=== PATIENT | female | born 1955 | race Caucasian/White ===

== ENCOUNTER 2025-05-01 07:39 | Inpatient (IN) ==
[2025-05-01] MEDS: LACTATED RINGERS 1,000 ML IV ONE ×2 (08:17)
[2025-05-01 08:33] LABS: Hematocrit 34.4 % (34.1-44.9); Hemoglobin 11.0 g/dL (11.2-15.7); Mean Corpuscular HGB Conc 32.0 g/dL (31.0-36.0); Platelet Count 311 K/mcL (140-440)
[2025-05-01 08:47] LABS: ALT/SGPT 7 U/L (<40); AST/SGOT 17 U/L (<32); Albumin 2.4 gm/dL (3.2-5.2); Albumin/Globulin Ratio 1.2 (1.0-2.3); Alkaline Phosphatase 64 U/L (39-117); Anion Gap 22.0 (8.0-16.0); Bilirubin,Total 0.7 mg/dL (0.1-1.0); Blood Urea Nitrogen 20 mg/dL (8-23); Calcium 7.9 mg/dL (8.6-10.4); Carbon Dioxide 17 mmol/L (22-30); Chloride 94 mmol/L (96-108); Globulin 2.0 gm/dL (2.2-3.7); Glucose 158 mg/dL (70-105); Potassium 3.6 mmol/L (3.3-5.1); Sodium 133 mmol/L (133-145)
[2025-05-01] MEDS: NOREPINEPHRINE BITARTRATE 16 MG in 0.9 % SODIUM CHLORIDE 234 ML IV SCH (09:51)
[2025-05-01] MEDS: NOREPINEPHRINE 250 ML IV SCH (10:11)
[2025-05-01] MEDS: CEFEPIME 1 GM VIAL IV ONE (10:14)
[2025-05-01] MEDS: CALCIUM GLUCONATE 4.65 MEQ in DEXTROSE 5% IN WATER 50 ML IV ONE (10:14)
[2025-05-01] MEDS: 0.9 % SODIUM CHLORIDE 250 ML ONE (10:26)
[2025-05-01] MEDS: 0.9 % SODIUM CHLORIDE 250 ML IV SCH ×2 (10:34→11:41)
[2025-05-01] MEDS: PIPERACILLIN SODIUM/TAZOBACTAM 4.5 GM in DEXTROSE 5% IN WATER 50 ML IV ONE (11:03)
[2025-05-01] MEDS: CEFEPIME 2 GM VIAL IV ONE (11:04)
[2025-05-01] MEDS: PANTOPRAZOLE 40 MG VIAL IV ONE (11:13)
[2025-05-01] MEDS: CEFEPIME 2 GM VIAL IV SCH (11:13)
[2025-05-01] MEDS: metroNIDAZOLE 500 MG/100 ML BAG IV SCH ×2 (11:14→17:39)
[2025-05-01] MEDS: 0.9 % SODIUM CHLORIDE 1,000 ML IV SCH ×2 (11:15→17:18)
[2025-05-01] MEDS ORDERED: fentaNYL 100 MCG/2 ML VIAL ONE (13:00)
[2025-05-01] MEDS ORDERED: PROPOFOL 200 MG/20 ML VIAL IV ONE (13:00)
[2025-05-01] MEDS ORDERED: LIDOCAINE 2% PF 5 ML VIAL ONE (13:01)
[2025-05-01] MEDS ORDERED: GLYCOPYRROLATE 0.2 MG/ML VIAL IV ONE (13:01)
[2025-05-01] MEDS ORDERED: ROCURONIUM 10 MG/ML ML IV ONE ×2 (13:01→15:41)
[2025-05-01] MEDS ORDERED: ONDANSETRON 4 MG/2 ML VIAL ONE (13:01)
[2025-05-01] MEDS ORDERED: DEXAMETHASONE 10 MG/ML VIAL ONE (13:01)
[2025-05-01] MEDS ORDERED: SUCCINYLCHOLINE 200 MG/10 ML VIAL IV ONE (13:01)
[2025-05-01] MEDS ORDERED: MAGNESIUM SULFATE 2 GM/50 ML BAG IV ONE (13:03)
[2025-05-01] MEDS ORDERED: FAMOTIDINE/PF 20 MG/2 ML VIAL IV ONE (13:04)
[2025-05-01 13:21] LABS: INR 1.3 (0.9-1.1); Prothrombin Time 16.8 sec (11.9-14.5)
[2025-05-01] MEDS ORDERED: PHENYLephrine 1 MG/10 ML SYRINGE (ANEST) ONE ×2 (13:23→13:58)
[2025-05-01] MEDS ORDERED: HYDROmorphone 0.5 MG/0.5 ML SYRINGE ONE (14:06)
[2025-05-01] MEDS ORDERED: 0.9 % SODIUM CHLORIDE 100 ML IV ONE (14:31)
[2025-05-01] MEDS ORDERED: VASOPRESSIN 20 UNIT/ML VIAL ONE (14:32)
[2025-05-01] MEDS ORDERED: SUGAMMADEX SODIUM 200 MG/2 ML VIAL IV ONE (15:41)
[2025-05-01] MEDS ORDERED: ONDANSETRON 4 MG/2 ML VIAL IV PRN (16:29)
[2025-05-01] MEDS ORDERED: METHOCARBAMOL 1,000 MG/10 ML VIAL IV PRN (16:29)
[2025-05-01] MEDS ORDERED: BENZOCAINE/MENTHOL 1 LOZENGE PO PRN (16:29)
[2025-05-01] MEDS ORDERED: fentaNYL 100 MCG/2 ML VIAL IV PRN (16:29)
[2025-05-01] MEDS ORDERED: HYDROmorphone 0.5 MG/0.5 ML SYRINGE IV PRN (16:29)
[2025-05-01] MEDS ORDERED: IPRATROPIUM/ALBUTEROL 3 ML AMPUL.NEB NEB PRN (16:29)
[2025-05-01] MEDS ORDERED: LACTATED RINGERS 250 ML IV PRN (16:29)
[2025-05-01] MEDS ORDERED: NALOXONE HCL 0.4 MG/ML VIAL IV PRN (16:29)
[2025-05-01 16:34] LABS: RBC 3.03 M/mcL (3.59-5.38); WBC 5.2 K/mcL (4.5-11.0)
[2025-05-01] MEDS: ACETAMINOPHEN 1,000 MG/100 ML BAG IV ONE (16:36)
[2025-05-01] MEDS: ALBUMIN HUMAN 25 GM/100 ML BAG IV SCH (17:19)
[2025-05-01] MEDS: METOCLOPRAMIDE 10 MG/2 ML VIAL IV SCH (18:07)
[2025-05-01] MEDS: PANTOPRAZOLE 80 MG in 0.9 % SODIUM CHLORIDE 100 ML IV SCH (18:23)
[2025-05-01] MEDS: LACTATED RINGERS 1,000 ML IV SCH (19:30)
[2025-05-01] MEDS: CEFEPIME 1 GM VIAL IV SCH (21:03)
[2025-05-02] MEDS: ACETAMINOPHEN 1,000 MG/100 ML BAG IV SCH (00:41)
[2025-05-02 06:30] LABS: Basophils # (Auto) 0 K/mcL (0.00-0.30); Basophils % (Auto) 0 % (0.0-2.0); Eosinophils # (Auto) 0 K/mcL (0.00-0.70); Eosinophils % (Auto) 0 % (0.0-7.0); Hematocrit 25.4 % (34.1-44.9); Hemoglobin 7.9 g/dL (11.2-15.7); Lymphocytes # (Auto) 0.37 K/mcL (1.50-4.80); Lymphocytes % (Auto) 5.8 % (15.5-49.0); Mean Corpuscular HGB Conc 31.1 g/dL (31.0-36.0); Monocytes # (Auto) 0.29 K/mcL (0.10-0.90); Monocytes % (Auto) 4.5 % (1.0-12.0); Platelet Count 201 K/mcL (140-440); RBC 2.19 M/mcL (3.59-5.38); WBC 6.4 K/mcL (4.5-11.0)
[2025-05-02 06:34] LABS: ALT/SGPT 8 U/L (<40); AST/SGOT 11 U/L (<32); Albumin 2.7 gm/dL (3.2-5.2); Albumin/Globulin Ratio 1.5 (1.0-2.3); Alkaline Phosphatase 43 U/L (39-117); Anion Gap 13.0 (8.0-16.0); Bilirubin,Direct 0.6 mg/dL (<0.3); Bilirubin,Total 0.8 mg/dL (0.1-1.0); Blood Urea Nitrogen 22 mg/dL (8-23); Calcium 8.1 mg/dL (8.6-10.4); Carbon Dioxide 19 mmol/L (22-30); Chloride 102 mmol/L (96-108); Globulin 1.8 gm/dL (2.2-3.7); Glucose 119 mg/dL (70-105); Phosphorous 4.0 mg/dL (2.5-4.5); Potassium 3.7 mmol/L (3.3-5.1); Sodium 134 mmol/L (133-145); Triglycerides 57 mg/dL (<150); Uric Acid 8.5 mg/dL (2.5-8.0)
[2025-05-02 14:54] LABS: Neutrophils % (Auto) 88.8 % (38.0-78.0)
[2025-05-02] MEDS ORDERED: SODIUM CHLORIDE IRRIG SOLUTION 250 ML BOTTLE IRR ONE (14:57)
[2025-05-02] MEDS ORDERED: LIDOCAINE 1% 10 ML VIAL SQ ONE (14:57)
[2025-05-02] MEDS ORDERED: HEPARIN 10 UNITS/ML 5ML FLUSH IV ONE (14:57)
[2025-05-02] MEDS: HEPARIN 10 UNITS/ML 5ML FLUSH IV SCH ×2 (20:58)
[2025-05-02] MEDS: 0.9 % SODIUM CHLORIDE 10 ML SYRINGE IV SCH (20:59)
[2025-05-02 21:04] LABS: Hematocrit 22.1 % (34.1-44.9); Hemoglobin 6.8 g/dL (11.2-15.7)
[2025-05-03] MEDS: 0.9 % SODIUM CHLORIDE 250 ML IV SCH ×2 (00:23→02:30)
[2025-05-03] MEDS: SIMVASTATIN 20 MG TABLET PO SCH (05:31)
[2025-05-03 06:14] LABS: Basophils # (Auto) 0 K/mcL (0.00-0.30); Basophils % (Auto) 0 % (0.0-2.0); Eosinophils # (Auto) 0 K/mcL (0.00-0.70); Eosinophils % (Auto) 0 % (0.0-7.0); Hematocrit 31.1 % (34.1-44.9); Hemoglobin 9.9 g/dL (11.2-15.7); Lymphocytes # (Auto) 0.96 K/mcL (1.50-4.80); Lymphocytes % (Auto) 12.8 % (15.5-49.0); Mean Corpuscular HGB Conc 31.8 g/dL (31.0-36.0); Monocytes # (Auto) 0.50 K/mcL (0.10-0.90); Monocytes % (Auto) 6.6 % (1.0-12.0); Platelet Count 156 K/mcL (140-440); RBC 2.87 M/mcL (3.59-5.38); WBC 7.5 K/mcL (4.5-11.0)
[2025-05-03 06:25] LABS: ALT/SGPT 7 U/L (<40); AST/SGOT 10 U/L (<32); Albumin 3.0 gm/dL (3.2-5.2); Albumin/Globulin Ratio 1.5 (1.0-2.3); Alkaline Phosphatase 44 U/L (39-117); Anion Gap 14.0 (8.0-16.0); Bilirubin,Total 0.6 mg/dL (0.1-1.0); Blood Urea Nitrogen 23 mg/dL (8-23); Calcium 8.4 mg/dL (8.6-10.4); Carbon Dioxide 16 mmol/L (22-30); Chloride 108 mmol/L (96-108); Globulin 2.0 gm/dL (2.2-3.7); Glucose 87 mg/dL (70-105); Phosphorous 3.9 mg/dL (2.5-4.5); Potassium 3.7 mmol/L (3.3-5.1); Sodium 138 mmol/L (133-145)
[2025-05-03] MEDS: DENOSUMAB 60 MG/ML SYRINGE SQ ONE (11:02)
[2025-05-03] MEDS: POTASSIUM CHLORIDE 10 MEQ TABLET PO SCH (11:02)
[2025-05-03] MEDS: 0.9 % SODIUM CHLORIDE 1,000 ML IV SCH ×2 (11:03→17:11)
[2025-05-03] MEDS: fentaNYL 100 MCG/2 ML VIAL IV PRN (11:06)
[2025-05-03] MEDS: metroNIDAZOLE 500 MG/100 ML BAG IV SCH (12:15)
[2025-05-03] MEDS ORDERED: DEXTROSE 31 GM ORAL.SUSP PO PRN (13:56)
[2025-05-03] MEDS ORDERED: DEXTROSE 50% 50 ML VIAL IV PRN (13:56)
[2025-05-03 14:05] LABS: Neutrophils % (Auto) 80.3 % (38.0-78.0)
[2025-05-03] MEDS ORDERED: TPN PER PHARMACY IV SCH (15:00)
[2025-05-03] MEDS: SODIUM CHLORIDE IV SCH (15:18)
[2025-05-03] MEDS: [UNRECOGNIZED DRUG - OTHER] IV SCH (15:18)
[2025-05-03] MEDS: MAGNESIUM SULFATE IV SCH (15:18)
[2025-05-03] MEDS: POTASSIUM ACETATE IV SCH (15:18)
[2025-05-03] MEDS: BENZOCAINE ONE 20% 1 SPRAY TOPICAL PRN (17:09)
[2025-05-03] MEDS: BENZOCAINE ONE 20% 1 SPRAY TOPICAL SCH (17:10)
[2025-05-03 17:20] LABS: Hematocrit 32.8 % (34.1-44.9); Hemoglobin 10.3 g/dL (11.2-15.7)
[2025-05-03] MEDS: INSULIN LISPRO 1 UNIT/0.01 ML UNIT SQ SCH (18:07)
[2025-05-03] MEDS: PANTOPRAZOLE 40 MG VIAL IV ONE (20:14)
[2025-05-04 06:36] LABS: Basophils # (Auto) 0 K/mcL (0.00-0.30); Basophils % (Auto) 0 % (0.0-2.0); Eosinophils # (Auto) 0 K/mcL (0.00-0.70); Eosinophils % (Auto) 0 % (0.0-7.0); Hematocrit 32.8 % (34.1-44.9); Hemoglobin 10.3 g/dL (11.2-15.7); Lymphocytes # (Auto) 1.17 K/mcL (1.50-4.80); Lymphocytes % (Auto) 14.7 % (15.5-49.0); Mean Corpuscular HGB Conc 31.4 g/dL (31.0-36.0); Monocytes # (Auto) 0.57 K/mcL (0.10-0.90); Monocytes % (Auto) 7.2 % (1.0-12.0); Neutrophils % (Auto) 77.7 % (38.0-78.0); Platelet Count 151 K/mcL (140-440); RBC 3.01 M/mcL (3.59-5.38); WBC 8.0 K/mcL (4.5-11.0)
[2025-05-04 06:45] LABS: ALT/SGPT 7 U/L (<40); AST/SGOT 9 U/L (<32); Albumin 2.8 gm/dL (3.2-5.2); Albumin/Globulin Ratio 1.4 (1.0-2.3); Alkaline Phosphatase 49 U/L (39-117); Anion Gap 10.0 (8.0-16.0); Bilirubin,Direct 0.3 mg/dL (<0.3); Bilirubin,Total 0.5 mg/dL (0.1-1.0); Blood Urea Nitrogen 21 mg/dL (8-23); Calcium 8.8 mg/dL (8.6-10.4); Carbon Dioxide 18 mmol/L (22-30); Chloride 113 mmol/L (96-108); Globulin 2.0 gm/dL (2.2-3.7); Glucose 130 mg/dL (70-105); Phosphorous 2.2 mg/dL (2.5-4.5); Potassium 3.2 mmol/L (3.3-5.1); Sodium 141 mmol/L (133-145); Triglycerides 79 mg/dL (<150); Uric Acid 6.6 mg/dL (2.5-8.0)
[2025-05-04] MEDS: POTASSIUM ACETATE IV SCH (14:40)
[2025-05-04] MEDS: [UNRECOGNIZED DRUG - OTHER] IV SCH (14:40)
[2025-05-04] MEDS: SODIUM CHLORIDE IV SCH (14:40)
[2025-05-04] MEDS: MAGNESIUM SULFATE IV SCH (14:40)
[2025-05-04] MEDS: FAT EMULSION 20% 250 ML IV SCH (17:29)
[2025-05-05 06:35] LABS: Basophils # (Auto) 0.01 K/mcL (0.00-0.30); Basophils % (Auto) 0.1 % (0.0-2.0); Eosinophils # (Auto) 0.03 K/mcL (0.00-0.70); Eosinophils % (Auto) 0.4 % (0.0-7.0); Hematocrit 34.3 % (34.1-44.9); Hemoglobin 10.8 g/dL (11.2-15.7); Lymphocytes # (Auto) 1.42 K/mcL (1.50-4.80); Lymphocytes % (Auto) 17.8 % (15.5-49.0); Mean Corpuscular HGB Conc 31.5 g/dL (31.0-36.0); Monocytes # (Auto) 0.80 K/mcL (0.10-0.90); Monocytes % (Auto) 10.0 % (1.0-12.0); Neutrophils % (Auto) 71.1 % (38.0-78.0); Platelet Count 146 K/mcL (140-440); RBC 3.17 M/mcL (3.59-5.38); WBC 8.0 K/mcL (4.5-11.0)
[2025-05-05 06:55] LABS: ALT/SGPT 6 U/L (<40); AST/SGOT 8 U/L (<32); Albumin 2.7 gm/dL (3.2-5.2); Albumin/Globulin Ratio 1.3 (1.0-2.3); Alkaline Phosphatase 71 U/L (39-117); Anion Gap 9.0 (8.0-16.0); Bilirubin,Direct 0.2 mg/dL (<0.3); Bilirubin,Total 0.4 mg/dL (0.1-1.0); Blood Urea Nitrogen 16 mg/dL (8-23); Calcium 8.6 mg/dL (8.6-10.4); Carbon Dioxide 19 mmol/L (22-30); Chloride 114 mmol/L (96-108); Globulin 2.1 gm/dL (2.2-3.7); Glucose 141 mg/dL (70-105); Phosphorous 1.9 mg/dL (2.5-4.5); Potassium 3.0 mmol/L (3.3-5.1); Sodium 142 mmol/L (133-145); Triglycerides 78 mg/dL (<150); Uric Acid 5.1 mg/dL (2.5-8.0)
[2025-05-05] MEDS: 0.9 % SODIUM CHLORIDE 10 ML SYRINGE IV PRN (08:16)
[2025-05-05] MEDS: POTASSIUM PHOSPHATE 40 MEQ in DEXTROSE 5% IN WATER 500 ML IV ONE (08:16)
[2025-05-05] MEDS: ALBUMIN HUMAN 12.5 GM/50 ML VIAL IV ONE (09:33)
[2025-05-05] MEDS: FUROSEMIDE 100 MG/10 ML VIAL IV ONE (10:07)
[2025-05-05 10:51] LABS: Folate 16.1 ng/mL (4.2-19.9)
[2025-05-05] MEDS: MVI IV SCH (14:54)
[2025-05-05] MEDS: [UNRECOGNIZED DRUG - OTHER] IV SCH (14:54)
[2025-05-05] MEDS: POTASSIUM ACETATE IV SCH (14:54)
[2025-05-05] MEDS: POTASSIUM PHOSPHATE IV SCH (14:54)
[2025-05-05] MEDS: MAGNESIUM SULFATE IV SCH (14:54)
[2025-05-06 07:17] LABS: ALT/SGPT < 5 U/L (<40); AST/SGOT 8 U/L (<32); Albumin 2.6 gm/dL (3.2-5.2); Albumin/Globulin Ratio 1.1 (1.0-2.3); Alkaline Phosphatase 57 U/L (39-117); Anion Gap 8.0 (8.0-16.0); Bilirubin,Direct 0.3 mg/dL (<0.3); Bilirubin,Total 0.4 mg/dL (0.1-1.0); Blood Urea Nitrogen 16 mg/dL (8-23); Calcium 8.1 mg/dL (8.6-10.4); Carbon Dioxide 21 mmol/L (22-30); Chloride 111 mmol/L (96-108); Globulin 2.3 gm/dL (2.2-3.7); Glucose 130 mg/dL (70-105); Phosphorous 2.4 mg/dL (2.5-4.5); Potassium 3.3 mmol/L (3.3-5.1); Sodium 140 mmol/L (133-145); Triglycerides 103 mg/dL (<150); Uric Acid 3.9 mg/dL (2.5-8.0)
[2025-05-06] MEDS ORDERED: hydrALAZINE 20 MG/ML VIAL IV PRN (09:38)
[2025-05-06] MEDS: POTASSIUM ACETATE IV SCH (15:08)
[2025-05-06] MEDS: POTASSIUM PHOSPHATE IV SCH (15:08)
[2025-05-06] MEDS: [UNRECOGNIZED DRUG - OTHER] IV SCH (15:08)
[2025-05-06] MEDS: MAGNESIUM SULFATE IV SCH (15:08)
[2025-05-06] MEDS: PANTOPRAZOLE 40 MG VIAL IV SCH (17:05)
[2025-05-07 06:48] LABS: ALT/SGPT < 5 U/L (<40); AST/SGOT 10 U/L (<32); Albumin 2.6 gm/dL (3.2-5.2); Albumin/Globulin Ratio 1.1 (1.0-2.3); Alkaline Phosphatase 68 U/L (39-117); Anion Gap 10.0 (8.0-16.0); Bilirubin,Direct 0.2 mg/dL (<0.3); Bilirubin,Total 0.4 mg/dL (0.1-1.0); Blood Urea Nitrogen 15 mg/dL (8-23); Calcium 8.2 mg/dL (8.6-10.4); Carbon Dioxide 20 mmol/L (22-30); Chloride 111 mmol/L (96-108); Globulin 2.4 gm/dL (2.2-3.7); Glucose 164 mg/dL (70-105); Phosphorous 2.5 mg/dL (2.5-4.5); Potassium 3.8 mmol/L (3.3-5.1); Sodium 141 mmol/L (133-145); Triglycerides 117 mg/dL (<150); Uric Acid 3.1 mg/dL (2.5-8.0)
[2025-05-07] MEDS: FUROSEMIDE 20 MG TABLET PO SCH (09:45)
[2025-05-08 06:07] LABS: Basophils # (Auto) 0.02 K/mcL (0.00-0.30); Basophils % (Auto) 0.2 % (0.0-2.0); Eosinophils # (Auto) 0.28 K/mcL (0.00-0.70); Eosinophils % (Auto) 3.2 % (0.0-7.0); Hematocrit 34.6 % (34.1-44.9); Hemoglobin 10.1 g/dL (11.2-15.7); Lymphocytes # (Auto) 1.49 K/mcL (1.50-4.80); Lymphocytes % (Auto) 16.9 % (15.5-49.0); Mean Corpuscular HGB Conc 29.2 g/dL (31.0-36.0); Monocytes # (Auto) 1.10 K/mcL (0.10-0.90); Monocytes % (Auto) 12.5 % (1.0-12.0); Neutrophils % (Auto) 66.7 % (38.0-78.0); Platelet Count 150 K/mcL (140-440); RBC 2.96 M/mcL (3.59-5.38); WBC 8.8 K/mcL (4.5-11.0)
[2025-05-08 08:04] LABS: ALT/SGPT < 5 U/L (<40); AST/SGOT 13 U/L (<32); Albumin 2.8 gm/dL (3.2-5.2); Albumin/Globulin Ratio 1.2 (1.0-2.3); Alkaline Phosphatase 79 U/L (39-117); Anion Gap 8.0 (8.0-16.0); Bilirubin,Direct < 0.2 mg/dL (0-0.3); Bilirubin,Total 0.3 mg/dL (0.1-1.0); Blood Urea Nitrogen 15 mg/dL (8-23); Calcium 8.3 mg/dL (8.6-10.4); Carbon Dioxide 22 mmol/L (22-30); Chloride 108 mmol/L (96-108); Globulin 2.4 gm/dL (2.2-3.7); Glucose 151 mg/dL (70-105); Phosphorous 3.2 mg/dL (2.5-4.5); Potassium 4.2 mmol/L (3.3-5.1); Sodium 138 mmol/L (133-145); Triglycerides 120 mg/dL (<150); Uric Acid 2.5 mg/dL (2.5-8.0)
[2025-05-08] MEDS: [UNRECOGNIZED DRUG - OTHER] IV SCH (15:46)
[2025-05-08] MEDS: MAGNESIUM SULFATE IV SCH (15:46)
[2025-05-08] MEDS: POTASSIUM PHOSPHATE IV SCH (15:46)
[2025-05-08] MEDS: POTASSIUM ACETATE IV SCH (15:46)
[2025-05-09 06:22] LABS: ALT/SGPT 6 U/L (<40); AST/SGOT 16 U/L (<32); Albumin 2.6 gm/dL (3.2-5.2); Albumin/Globulin Ratio 0.9 (1.0-2.3); Alkaline Phosphatase 85 U/L (39-117); Anion Gap 9.0 (8.0-16.0); Bilirubin,Direct < 0.2 mg/dL (0-0.3); Bilirubin,Total 0.3 mg/dL (0.1-1.0); Blood Urea Nitrogen 18 mg/dL (8-23); Calcium 8.5 mg/dL (8.6-10.4); Carbon Dioxide 21 mmol/L (22-30); Chloride 106 mmol/L (96-108); Globulin 2.8 gm/dL (2.2-3.7); Glucose 154 mg/dL (70-105); Phosphorous 3.5 mg/dL (2.5-4.5); Potassium 4.4 mmol/L (3.3-5.1); Sodium 136 mmol/L (133-145); Triglycerides 123 mg/dL (<150); Uric Acid 2.5 mg/dL (2.5-8.0)
[2025-05-09 07:11] LABS: Basophils # (Auto) 0.03 K/mcL (0.00-0.30); Basophils % (Auto) 0.3 % (0.0-2.0); Eosinophils # (Auto) 0.16 K/mcL (0.00-0.70); Eosinophils % (Auto) 1.4 % (0.0-7.0); Hematocrit 35.9 % (34.1-44.9); Hemoglobin 11.3 g/dL (11.2-15.7); Lymphocytes # (Auto) 1.77 K/mcL (1.50-4.80); Lymphocytes % (Auto) 15.6 % (15.5-49.0); Mean Corpuscular HGB Conc 31.5 g/dL (31.0-36.0); Monocytes # (Auto) 1.06 K/mcL (0.10-0.90); Monocytes % (Auto) 9.3 % (1.0-12.0); Neutrophils % (Auto) 72.5 % (38.0-78.0); Platelet Count 191 K/mcL (140-440); RBC 3.39 M/mcL (3.59-5.38); WBC 11.3 K/mcL (4.5-11.0)
[2025-05-09] MEDS: [UNRECOGNIZED DRUG - OTHER] IV SCH (15:47)
[2025-05-09] MEDS: MAGNESIUM SULFATE IV SCH (15:47)
[2025-05-09] MEDS: POTASSIUM ACETATE IV SCH (15:47)
[2025-05-09] MEDS: POTASSIUM PHOSPHATE IV SCH (15:47)
[2025-05-10 07:01] LABS: ALT/SGPT 7 U/L (<40); AST/SGOT 19 U/L (<32); Albumin 2.5 gm/dL (3.2-5.2); Albumin/Globulin Ratio 0.9 (1.0-2.3); Alkaline Phosphatase 96 U/L (39-117); Anion Gap 11.0 (8.0-16.0); Bilirubin,Direct < 0.2 mg/dL (0-0.3); Bilirubin,Total 0.3 mg/dL (0.1-1.0); Blood Urea Nitrogen 15 mg/dL (8-23); Calcium 8.3 mg/dL (8.6-10.4); Carbon Dioxide 20 mmol/L (22-30); Chloride 104 mmol/L (96-108); Globulin 2.8 gm/dL (2.2-3.7); Glucose 160 mg/dL (70-105); Phosphorous 3.4 mg/dL (2.5-4.5); Potassium 3.9 mmol/L (3.3-5.1); Sodium 135 mmol/L (133-145); Triglycerides 142 mg/dL (<150); Uric Acid 2.5 mg/dL (2.5-8.0)
[2025-05-10 08:36] LABS: Basophils # (Auto) 0.04 K/mcL (0.00-0.30); Basophils % (Auto) 0.4 % (0.0-2.0); Eosinophils # (Auto) 0.10 K/mcL (0.00-0.70); Eosinophils % (Auto) 0.9 % (0.0-7.0); Hematocrit 33.0 % (34.1-44.9); Hemoglobin 10.7 g/dL (11.2-15.7); Lymphocytes # (Auto) 1.60 K/mcL (1.50-4.80); Lymphocytes % (Auto) 14.2 % (15.5-49.0); Mean Corpuscular HGB Conc 32.4 g/dL (31.0-36.0); Monocytes # (Auto) 0.89 K/mcL (0.10-0.90); Monocytes % (Auto) 7.9 % (1.0-12.0); Neutrophils % (Auto) 76.1 % (38.0-78.0); Platelet Count 200 K/mcL (140-440); RBC 3.15 M/mcL (3.59-5.38); WBC 11.3 K/mcL (4.5-11.0)
[2025-05-10] MEDS ORDERED: VANCOMYCIN PER PHARMACY IV SCH (11:24)
[2025-05-10] MEDS: VANCOMYCIN 1,750 MG in 0.9 % SODIUM CHLORIDE 500 ML IV SCH (12:40)
[2025-05-10] MEDS: POTASSIUM PHOSPHATE IV SCH (15:00)
[2025-05-10] MEDS: POTASSIUM ACETATE IV SCH (15:00)
[2025-05-10] MEDS: MAGNESIUM SULFATE IV SCH (15:00)
[2025-05-10] MEDS: [UNRECOGNIZED DRUG - OTHER] IV SCH (15:00)
[2025-05-11 07:22] LABS: ALT/SGPT 9 U/L (<40); AST/SGOT 24 U/L (<32); Albumin 2.5 gm/dL (3.2-5.2); Albumin/Globulin Ratio 0.9 (1.0-2.3); Alkaline Phosphatase 88 U/L (39-117); Anion Gap 11.0 (8.0-16.0); Bilirubin,Direct 0.2 mg/dL (<0.3); Bilirubin,Total 0.4 mg/dL (0.1-1.0); Blood Urea Nitrogen 15 mg/dL (8-23); Calcium 8.3 mg/dL (8.6-10.4); Carbon Dioxide 20 mmol/L (22-30); Chloride 106 mmol/L (96-108); Globulin 2.7 gm/dL (2.2-3.7); Glucose 139 mg/dL (70-105); Phosphorous 3.5 mg/dL (2.5-4.5); Potassium 3.8 mmol/L (3.3-5.1); Sodium 137 mmol/L (133-145); Triglycerides 113 mg/dL (<150); Uric Acid 2.5 mg/dL (2.5-8.0)
[2025-05-11] MEDS: CIPROFLOXACIN 400 MG/200 ML BAG IV SCH (11:01)
[2025-05-11] MEDS: CIPROFLOXACIN 500 MG TABLET PO SCH (21:03)
[2025-05-12 06:34] LABS: Basophils # (Auto) 0.06 K/mcL (0.00-0.30); Basophils % (Auto) 0.6 % (0.0-2.0); Eosinophils # (Auto) 0.12 K/mcL (0.00-0.70); Eosinophils % (Auto) 1.2 % (0.0-7.0); Hematocrit 32.1 % (34.1-44.9); Hemoglobin 10.0 g/dL (11.2-15.7); Lymphocytes # (Auto) 1.35 K/mcL (1.50-4.80); Lymphocytes % (Auto) 13.0 % (15.5-49.0); Mean Corpuscular HGB Conc 31.2 g/dL (31.0-36.0); Monocytes # (Auto) 0.74 K/mcL (0.10-0.90); Monocytes % (Auto) 7.1 % (1.0-12.0); Neutrophils % (Auto) 77.8 % (38.0-78.0); Platelet Count 227 K/mcL (140-440); RBC 3.04 M/mcL (3.59-5.38); WBC 10.4 K/mcL (4.5-11.0)
[2025-05-12 07:19] LABS: ALT/SGPT 8 U/L (<40); AST/SGOT 22 U/L (<32); Albumin 2.4 gm/dL (3.2-5.2); Albumin/Globulin Ratio 0.9 (1.0-2.3); Alkaline Phosphatase 97 U/L (39-117); Anion Gap 10.0 (8.0-16.0); Bilirubin,Direct < 0.2 mg/dL (0-0.3); Bilirubin,Total 0.3 mg/dL (0.1-1.0); Blood Urea Nitrogen 14 mg/dL (8-23); Calcium 8.1 mg/dL (8.6-10.4); Carbon Dioxide 20 mmol/L (22-30); Chloride 104 mmol/L (96-108); Globulin 2.7 gm/dL (2.2-3.7); Glucose 140 mg/dL (70-105); Phosphorous 3.6 mg/dL (2.5-4.5); Potassium 3.7 mmol/L (3.3-5.1); Sodium 134 mmol/L (133-145); Triglycerides 137 mg/dL (<150); Uric Acid 2.3 mg/dL (2.5-8.0)
[2025-05-12] MEDS: INSULIN LISPRO 1 UNIT/0.01 ML UNIT SQ SCH (21:44)
[2025-05-13 06:09] LABS: Basophils # (Auto) 0.07 K/mcL (0.00-0.30); Basophils % (Auto) 0.7 % (0.0-2.0); Eosinophils # (Auto) 0.11 K/mcL (0.00-0.70); Eosinophils % (Auto) 1.1 % (0.0-7.0); Hematocrit 33.7 % (34.1-44.9); Hemoglobin 10.6 g/dL (11.2-15.7); Lymphocytes # (Auto) 1.11 K/mcL (1.50-4.80); Lymphocytes % (Auto) 10.9 % (15.5-49.0); Mean Corpuscular HGB Conc 31.5 g/dL (31.0-36.0); Monocytes # (Auto) 0.62 K/mcL (0.10-0.90); Monocytes % (Auto) 6.1 % (1.0-12.0); Neutrophils % (Auto) 81.0 % (38.0-78.0); Platelet Count 256 K/mcL (140-440); RBC 3.21 M/mcL (3.59-5.38); WBC 10.2 K/mcL (4.5-11.0)
[2025-05-13 09:30] LABS: ALT/SGPT 10 U/L (<40); AST/SGOT 21 U/L (<32); Albumin 2.5 gm/dL (3.2-5.2); Albumin/Globulin Ratio 0.9 (1.0-2.3); Alkaline Phosphatase 106 U/L (39-117); Anion Gap 11.0 (8.0-16.0); Bilirubin,Direct < 0.2 mg/dL (0-0.3); Bilirubin,Total 0.3 mg/dL (0.1-1.0); Blood Urea Nitrogen 14 mg/dL (8-23); Calcium 8.4 mg/dL (8.6-10.4); Carbon Dioxide 21 mmol/L (22-30); Chloride 103 mmol/L (96-108); Globulin 2.9 gm/dL (2.2-3.7); Glucose 154 mg/dL (70-105); Phosphorous 3.9 mg/dL (2.5-4.5); Potassium 4.0 mmol/L (3.3-5.1); Sodium 135 mmol/L (133-145); Triglycerides 127 mg/dL (<150); Uric Acid 2.1 mg/dL (2.5-8.0)
[2025-05-13] MEDS: ACETAMINOPHEN 1,000 MG/100 ML BAG IV PRN (20:33)
[2025-05-14 06:01] LABS: Basophils # (Auto) 0.06 K/mcL (0.00-0.30); Basophils % (Auto) 0.6 % (0.0-2.0); Eosinophils # (Auto) 0.11 K/mcL (0.00-0.70); Eosinophils % (Auto) 1.0 % (0.0-7.0); Hematocrit 33.4 % (34.1-44.9); Hemoglobin 10.6 g/dL (11.2-15.7); Lymphocytes # (Auto) 1.32 K/mcL (1.50-4.80); Lymphocytes % (Auto) 12.2 % (15.5-49.0); Mean Corpuscular HGB Conc 31.7 g/dL (31.0-36.0); Monocytes # (Auto) 0.71 K/mcL (0.10-0.90); Monocytes % (Auto) 6.5 % (1.0-12.0); Neutrophils % (Auto) 79.4 % (38.0-78.0); Platelet Count 277 K/mcL (140-440); RBC 3.18 M/mcL (3.59-5.38); WBC 10.9 K/mcL (4.5-11.0)
[2025-05-14 06:23] LABS: ALT/SGPT 13 U/L (<40); AST/SGOT 22 U/L (<32); Albumin 2.6 gm/dL (3.2-5.2); Albumin/Globulin Ratio 0.9 (1.0-2.3); Alkaline Phosphatase 110 U/L (39-117); Anion Gap 10.0 (8.0-16.0); Bilirubin,Direct < 0.2 mg/dL (0-0.3); Bilirubin,Total 0.3 mg/dL (0.1-1.0); Blood Urea Nitrogen 13 mg/dL (8-23); Calcium 8.3 mg/dL (8.6-10.4); Carbon Dioxide 22 mmol/L (22-30); Chloride 102 mmol/L (96-108); Globulin 2.9 gm/dL (2.2-3.7); Glucose 146 mg/dL (70-105); Phosphorous 3.9 mg/dL (2.5-4.5); Potassium 3.9 mmol/L (3.3-5.1); Sodium 134 mmol/L (133-145); Triglycerides 140 mg/dL (<150); Uric Acid 2.2 mg/dL (2.5-8.0)
[2025-05-14] MEDS: POTASSIUM ACETATE IV ONE (09:12)
[2025-05-14] MEDS: POTASSIUM PHOSPHATE IV ONE (09:12)
[2025-05-14] MEDS: [UNRECOGNIZED DRUG - OTHER] IV ONE (09:12)
[2025-05-14] MEDS: MAGNESIUM SULFATE IV ONE (09:12)
[2025-05-15 12:00] VITALS: TEMP 97.5; O2SAT 98
== END 2025-05-15 14:58 | DRG 326 ==
LOC: ED 07:39 → SUR 13:10 → ICU 16:18 → MEDSUR 05-06 17:40
PROVIDERS: ADMIT Family Medicine Adult Medicine; ATTEND Family Medicine Adult Medicine